=== PATIENT | female | born 1965 | race Caucasian/White ===

== ENCOUNTER 2021-04-03 11:08 | Emergency (ER) | payer BC ==
[~2021-04-03] VITALS: Ht 121.9 cm; Wt 49.9 kg
[2021-04-03 11:31] VITALS: BP 107/74
--- NOTE | 2021-04-03 11:36 | NUR ---
BIBS FOR C/O LEFT EYELID SWELLING AND REDNESS X 1 DAY. RATES LEFT EYELID PAIN 3/10. WILL CONTINUE TO MONITOR THE PATIENT.
[2021-04-03] MEDS ORDERED: CIPR5DRO LEFTEYE (11:38)
--- NOTE | 2021-04-03 11:44 | NUR ---
Patient discharged to home in stable condition. Written and verbal after care instructions given. Patient verbalizes understanding of instruction.
== END 2021-04-03 11:45 | disposition home or self-care (01) ==
LOC: ER 11:08
DX: H01.005 Unspecified blepharitis left lower eyelid (principal)